=== PATIENT | female | born 1985 | race African-American/Black ===

== ENCOUNTER 2016-03-17 21:36 | Emergency (ER) | payer MEDICAID ==
[2016-03-17 21:52] VITALS: BP 158/96; PULSE 72; TEMP 98.6; BMI 37.9
[2016-03-17 22:11] LABS: LEUKOCYTES/URINE TRACE (NEGATIVE); NITRITE/URINE NEG (NEGATIVE); RBC/URINE TNTC (0-5); URINE OCCULT BLOOD 3+ (NEG/TRACE)
--- NOTE | 2016-03-17 22:58 | EDPRACDOC ---
- General Information Chief Complaint: Medication Refill Stated Complaint: PREG TEST Time Seen by Provider: 03/17/16 22:38 Information Source: Patient Mode Of Arrival: Car Home Medications: Home Medications Vits W-Ca,Fe,FA(<1Mg) [] 1 tab PO DAILY 03/17/16 Unk Lisinopril/Hctz 0 mg PO .SEE COMMENTS 03/17/16 Allergies/Adverse Reactions: Allergies Allergy/AdvReac Type Severity Reaction Status Date / Time acetaminophen [From Percocet] Allergy Mild Itching Verified 06/02/12 22:20 oxycodone HCl [From Percocet] Allergy Mild Itching Verified 06/02/12 22:20 tioconazole [From Monistat 1] Allergy Unknown Verified 06/02/12 22:20 - History of Present Illness Duration Without Medication: ste[place] HPI: PT PRESENTS TO ED FOR VERIFICATION OF . STATES LNMP WAS 02/15/16. NO VAGINAL BLEEDING/DISCHARGE OR ABD PAIN AT THIS TIME. Pain: Reports: None ED Past Medical History - History Reviewed Yes Nurses notes reviewed and agree except as marked Travel Outside of [place] in the Last 3 Months?: No - Patient Medical History Cardiac History: Reports: Hypertension Psychological History: Denies: Depression Systemic History: Denies: Cancer, Anemia, Lupus Surgical History: Denies: Hysterectomy - Family Medical History Reports: Hypertension (parents, brother, grandparents), Diabetes (brother). Denies: Cancer, Stroke, Cardiac Disorders - Social Medical History ETOH: None Substance Abuse: None Lives With: Other Lives In: Home EDM Review of Systems - Review of Systems ROS Negative Except as Marked: Yes All systems reviewed and were negative except as marked Constitutional: No Symptoms Reported. negative: Fever, Chills, Weakness, Fatigue, Loss of Appetite Eyes: No Symptoms Reported. negative: Redness, Blurred Vision, Double Vision, Discharge, Pain, Light Sensitive, Photophobia Ears: No Symptoms Reported. negative: Pain, Hearing Loss, Drainage, Ear Pulling Throat: No Symptoms Reported. negative: Pain, Swelling Nose: No Symptoms Reported. negative: Congestion, Bleeding, Discharge, Injection, Swelling, Deformity, Ecchymosis, Tender, Abrasion, Laceration Mouth: No Symptoms Reported. negative: Pain, Drooling Respiratory: No Symptoms Reported. negative: Cough, Brassy Cough, Barky Cough, Shortness of Breath, Wheezing, Hemoptysis Cardiovascular: No Symptoms Reported. negative: Chest Pain, Palpitations, Syncope, Edema, Orthopnea, PND, Skin Mottling, Cyanosis Gastrointestinal: No Symptoms Reported. negative: Pain, Constipation, Nausea, Vomiting, Diarrhea, Melena, Formula Intolerance Genitourinary: No Symptoms Reported. negative: Dysuria, Hematuria, Frequency, Discharge, Bleeding, Testicular Pain, Neurological: No Symptoms Reported. negative: Headache, Dizziness, Seizure, Numbness, Weakness, Speech Difficulty, Gait Difficulty Musculoskeletal: No Symptoms Reported. negative: Neck, Chestwall, Ribs, Back, Shoulder, Arm, Elbow, Forearm, Wrist, Hand, Pelvis, Hip, Femur, Knee, Leg, Ankle , Foot Integumentary: No Symptoms Reported. negative: Itching, Rash, Bruising, Wound Allergic/Immunologic: No Symptoms Reported. negative: Hives, Itching Hematologic: No Symptoms Reported. negative: Lymphadenopathy, Easy Bruising, Easy Bleeding Endocrine: No Symptoms Reported. negative: Weight Gain, Weight Loss Psychiatric: No Symptoms Reported. negative: Anxiety, Depression, Hallucinations, Insomnia, Suicidal - Physical Exam Constitutional: Alert (Awake), No apparent distress Oriented to: Time, Person, Place Last recorded Vital Signs: Last Vital Signs Temp 98.6 F 03/17/16 21:48 Pulse 72 03/17/16 21:48 Resp 20 03/17/16 21:48 BP 158/96 03/17/16 21:48 Pulse Ox 98 03/17/16 21:48 Oxygen Pulse Oxygen Saturation 98 O2 Device Room Air Oxygen Flow Rate Fraction of Inspired Oxygen ( FIO2) - HEENT Head: Normal ( normocephalic) Eye Exam: Normal (PERRL, EOMI, Sclera white) Oropharynx: Normal (Pharynx:Moist without exudate,Gums-no swelling) Tympanic Membrane: Normal ENT EAC: Normal TMJ: Normal Nose: No Symptoms Reported (septum midline) Neck: Normal (FROM, trachea at midline) - Respiratory/Cardiovascular Respiratory: Normal - CTA (BBS clear to auscultation without adventitious sounds ) Cardiovascular: Normal (RRR without murmur, gallop or rub) - GI Auscultation: Normal (NABS) Palpation: Normal (Soft,No rebound or guarding, non distended) Tenderness: Non tender Mcgrath's Sign: Negative - Musculoskeletal Back: Normal (Non-Tender) Extremities: Normal (Normal tone, Pulses 2+ No cyanosis or edema, FROM) - Integumentary Skin: Normal, Warm, Dry Lymphatics: Normal (no adenopathy) - Neurologic Memory Impaired: Normal Motor Function: Normal (Normal tone, Pulses 2+ No cyanosis or edema, FROM) Cranial Nerve: Normal (CN II-X11 intact sensation, strength 5/5) Cerebellar: Normal Mood Description: Normal Perception: Normal - Differential Diagnosis Other (POSSIBLE ) - Results Urine Color Yellow 03/17/16 21:53 Urine Clarity Sl cldy 03/17/16 21:53 Urine pH 5.0 (5.0-8.0) 03/17/16 21:53 Ur Specific [place] 1.020 (1.003-1.035) 03/17/16 21:53 Urine Protein Neg (NEG/TRACE) 03/17/16 21:53 Urine Glucose (UA) Neg (NEGATIVE) 03/17/16 21:53 Urine Ketones Neg (NEGATIVE) 03/17/16 21:53 Urine Occult Blood 3+ (NEG/TRACE) H 03/17/16 21:53 Urine Nitrite Neg (NEGATIVE) 03/17/16 21:53 Urine Bilirubin Neg (NEGATIVE) 03/17/16 21:53 Urine Urobilinogen <2.0 MG/DL (0-1) 03/17/16 21:53 Ur Leukocyte Esterase Trace (NEGATIVE) H 03/17/16 21:53 Urine RBC Tntc (0-5) H 03/17/16 21:53 Urine WBC 2-5 (0-5) 03/17/16 21:53 Ur Epithelial Cells 2+ 03/17/16 21:53 Urine Bacteria Few (NEG/FEW) 03/17/16 21:53 Urine Mucus Occ (NEG/OCC) 03/17/16 21:53 Urine Test Pos (NEGATIVE) H 03/17/16 21:53 Lab Results 03/17/16 03/17/16 21:53 21:53 Urine Color Yellow Urine Clarity Sl cldy Urine pH 5.0 Ur Specific [place] 1.020 Urine Protein Neg Urine Glucose (UA) Neg Urine Ketones Neg Urine Occult Blood 3+ H Urine Nitrite Neg Urine Bilirubin Neg Urine Urobilinogen <2.0 Ur Leukocyte Esterase Trace H Urine RBC Tntc H Urine WBC 2-5 Ur Epithelial Cells 2+ Urine Bacteria Few Urine Mucus Occ Urine Test Pos H Decision Time to Discharge: 22:58 - Departure Disposition: Home Condition: Stable Final Diagnosis: Qualifiers: Weeks of gestation: less than 8 weeks Qualified Code(s): Z3A.01 - Less than 8 weeks gestation of Instructions: (ED) Education/Counseling Given To: Patient Education/Counseling Given Regarding: Diagnosis, Treatment, Prognosis, Follow Up Referrals: Verna Dallas MD [Primary Care Provider] - One Week Forms: Primary / Family Care Contact
== END 2016-03-17 23:18 | disposition home or self-care (01) ==
LOC: ED 21:36
DX: Z34.90 Encounter for supervision of normal pregnancy, unspecified, unspecified trimester (principal)
CPT/HCPCS: 81001; 81025; 99282